=== PATIENT | male | born 1960 | race African-American/Black ===

== ENCOUNTER 2020-06-21 08:20 | Day surgery (SDC) | payer OTHER, SELFPAY ==
[2020-06-14 15:23] VITALS: BMI 30.9
--- NOTE | 2020-06-14 15:25 | P.CONAN_ITS ---
Documented by User: Celi Rojas 06/16/20 08:45 HPI - Anesthesia Eval Consult details Narrative: 59yo M for Colonoscopy with antibiotics (TKA 2019) [facility] Past Medical History Medical History Arthritis HTN (hypertension) Surgical History Surgical History History of bilateral carpal tunnel release Hx of colonoscopy Hx of total knee arthroplasty Social History Social History Smoking Status: Never smoker Use of substances other than those prescribed or required for medical reasons: Yes Substance Use Type: Marijuana Substance Use Type Other:: medical marijuana Substance Use Frequency: Daily Advance Directives: No Advance Directives Information Provided: No Advance Directives on File: No Meds Allergies Allergy/AdvReac Type Severity Reaction Status Date / Time Penicillins Allergy Hives Verified 06/15/20 09:24 Home Medications Medication Instructions Recorded Confirmed Type amlodipine-benazepril 1 cap PO DAILY 06/14/20 06/14/20 History Exam Exam Date and Time: June 14, 2020 1525 Height,Weight and Vital Signs: Height 6 ft Weight 103.419 kg Assessment and Plan Assessment Anesthesia Assessment: Chart Reviewed Documented by User: Jennifer Schmidt 06/21/20 09:37 [facility] Past Medical History Medical History Arthritis HTN (hypertension) Family History Family history of problems with anesthesia: No Surgical History Surgical History History of bilateral carpal tunnel release Hx of colonoscopy Hx of total knee arthroplasty History of Problems with Anesthesia: No Social History Social History Smoking Status: Never smoker Use of substances other than those prescribed or required for medical reasons: Yes Substance Use Type: Marijuana Substance Use Type Other:: medical marijuana Substance Use Frequency: Daily Advance Directives: No Advance Directives Information Provided: No Advance Directives on File: No Meds Allergies Allergy/AdvReac Type Severity Reaction Status Date / Time Penicillins Allergy Hives Verified 06/15/20 09:24 Home Medications Medication Instructions Recorded Confirmed Type amlodipine-benazepril 1 cap PO DAILY 06/14/20 06/14/20 History Exam Height,Weight and Vital Signs: Vital Signs Temp Pulse Resp BP Pulse Ox 06/21/20 08:53 97.4 F 59 18 169/90 H 100 Airway Mallampati Class: II TM Dist: >3cm Neck ROM: Full Denture: Upper Heart: RRR Lungs: CTAB Assessment and Plan Assessment Anesthesia Assessment: Anesthesia Plan Discussed and Chart Reviewed Final Anesthetic Review NPO: Yes ASA Class: II Final Preanesthetic Review: No Changes in Pt Med Stat, Meds/Allgs Chart Reviewed, Consent Obtained/Reviewed and Anes Risks/Benef Reviewed Patient Risk: Low Procedure Risk: Low Anesthetic Plan Anesthetic Plan: MAC: Disposition: Standard PACU
[2020-06-15 09:25] VITALS: BMI 29.5
[2020-06-21 08:53] VITALS: BP 169/90; PULSE 59; RESP 18; TEMP 36.3; O2SAT 100
[2020-06-21] MEDS: Lactated Ringers 1,000 ML 100 ML IVCONT (08:55)
[2020-06-21] MEDS: Ampicillin Sodium 2 GM in 0.9 % Sodium Chloride 100 ML IV (08:56)
[2020-06-21] MEDS: Gentamicin Sulfate/NaCl 80 MG/100 ML PIGGYBACK 100 MG IV (08:56)
[2020-06-21 10:22] VITALS: BP 110/62; PULSE 72; RESP 16; TEMP 36.1; O2SAT 99
--- NOTE | 2020-06-21 10:25 | PM.OP ---
Brief Operative Note Date of Service: 06/21/20 Pre-op diagnosis: Screening Post-op diagnosis: other (Colon polyp) Procedure: Colonoscopy to cecum and TI with biopsy and removal of polyp Surgeon: Bautista Correa Anesthesia: MAC Estimated blood loss (mL): 3.0 Pathology: other (A. Polyp at 30cm) Condition: stable Disposition: PACU
[2020-06-21 10:38] VITALS: BP 128/66; PULSE 68; RESP 16; TEMP 36.1; O2SAT 97
--- NOTE | 2020-06-21 11:05 | OP_ITS ---
SURGEON: Bautista Correa MD INDICATIONS: The patient presents for evaluation of colorectal cancer screening. Full consent has been obtained from him for this, including risks of bleeding and perforation. PREOPERATIVE DIAGNOSIS: Colorectal cancer screening. POSTOPERATIVE DIAGNOSIS: PROCEDURE PERFORMED: Colonoscopy to the cecum and terminal ileum with biopsy and removal of polyp. ESTIMATED BLOOD LOSS: COMPLICATIONS: ANESTHESIA: Monitored anesthesia care. ASSISTANTS: SPECIMENS: POSTOPERATIVE DIAGNOSES: Colorectal cancer screening, small colon polyp, mild sigmoid diverticulosis, internal hemorrhoids. DESCRIPTION OF PROCEDURE: The patient was placed in the left lateral decubitus position. The digital rectal exam revealed no abnormalities. The Olympus video pediatric colonoscope was entered into the rectum and advanced easily to the cecum. Once in the cecum, I did identify normal-appearing cecal pouch with appendiceal orifice and a normal-appearing ileocecal valve. The terminal ileum was cannulated and appeared normal. The scope was withdrawn back in the colon. The entire cecum and ileocecal valve appeared normal. The scope was slowly withdrawn assessing all mucosal surfaces carefully. Preparation was excellent. At 30 cm, was a flat approximately 5 mm polyp, which was biopsied and completely removed with cold biopsy forceps. I did not visualize any other polyps, colitis, nor angiodysplasia. There was a mild amount of sigmoid diverticulosis. In the rectum, scope was retroflexed visualizing internal hemorrhoids, but no other pathology. The rectal mucosa appeared normal. The scope was straightened out and withdrawn from the patient. He tolerated the procedure well and was returned to the recovery area in stable condition. IMPRESSION: 1. Small colon polyp, status post biopsy and removal. 2. Mild sigmoid diverticulosis. 3. Small internal hemorrhoids. PLAN: The results of the biopsies will be checked. If this is a tubular adenoma, I would recommend a followup colonoscopy in 5 years. If it is only hyperplastic, I would recommend a followup colonoscopy in 10 years. He was advised not to use any aspirin and NSAIDs for 1 week. He did receive preprocedure antibiotics for prophylaxis in regard to his recent knee replacement and was given a prescription to use amoxicillin later today. He will see me otherwise on a p.r.n. basis. MD ARTHUR Sultana/KARMA / [phone]
--- NOTE | 2020-06-22 08:37 | PC.NURSE ---
PATIENT LEFT MESSAGE POST OP CALL. ADVISED CONTACT M.Zacarias. WITH ANY CONCERNS
== END 2020-06-21 23:59 | disposition home or self-care (01) ==
PROVIDERS: PCP Internal Medicine; Visit Provider Internal Medicine
PROC: 0DJD8ZZ Inspection of Lower Intestinal Tract, Via Natural or Artificial Opening Endoscopic (ICD-10-PCS; CPT 45378; principal; 2020-06-21 09:30)
DX: Z12.11 Encounter for screening for malignant neoplasm of colon (principal); D12.6 Benign neoplasm of colon, unspecified; K57.30 Diverticulosis of large intestine without perforation or abscess without bleeding; K64.8 Other hemorrhoids; I10 Essential (primary) hypertension; Z79.899 Other long term (current) drug therapy; Z88.0 Allergy status to penicillin
CPT/HCPCS: 45380; 88305; J0290; J1580